=== PATIENT | male | born 1980 | race Caucasian/White ===

== ENCOUNTER 2018-04-07 09:31 | Emergency (ER) | payer OTHER, SELFPAY ==
[2018-04-07 09:35] VITALS: BP 109/73; PULSE 68; RESP 12; TEMP 36; O2SAT 98
[2018-04-07] MEDS: PROPARACAINE 0.5% OPHTH SOL 1 DROPS EYE-RIGHT (09:46)
--- NOTE | 2018-04-07 10:11 | ED_ITS ---
HPI - Eye Problem General Chief complaint: Eye Problems Stated complaint: SOMETHING IN RT EYE Time Seen by Provider: 04/07/18 10:05 Source: patient Mode of arrival: ambulatory Limitations: no limitations History of Present Illness HPI Narrative: This a 37-year-old male comes to the emergency department with complaint of redness and irritation of his right eye. Patient does not recall any trauma, he has not been grinding metal, working on cars have been her on any blowing debris or other things that would likely have gotten into his eye. He states he has had a little irritation alternating with each eye. He has not had any prior eye surgeries, he does not have any contacts or glasses. He states he has not noticed any major vision change they have been slightly irritated, slightly more teary but no purulent discharge thick goopy discharge or crusting. They do have several children at home but none of them have had similar symptoms. Related Data Previous Rx's Medication Instructions Recorded polymyxin B sulf-trimethoprim 1 drop EYE-RIGHT QID 5 Days ml 04/07/18 Allergies Allergy/AdvReac Type Severity Reaction Status Date / Time No Known Drug Allergies Allergy Verified 04/07/18 09:44 Review of Systems Review of Systems All systems reviewed & are unremarkable except as noted in HPI and below Eyes Denies blurry vision, Denies change in vision, Denies diplopia, Denies eye discharge, Reports dry eyes, Reports irritation, Denies itchy eyes, Denies loss of vision, Denies eye pain, Denies requires corrective lenses and Denies photophobia ENT Ears, Nose, Mouth, and Throat: Denies nasal congestion Respiratory Denies cough Integumentary/Breasts Denies rash Neurologic Denies loss of vision Allergic/Immunologic Denies itchy eyes Exam Initial Vital Signs Initial Vital Signs: Vital Signs Temperature 96.8 F L 04/07/18 09:35 Pulse Rate 68 04/07/18 09:35 Respiratory Rate 12 04/07/18 09:35 Blood Pressure 109/73 04/07/18 09:35 Pulse Oximetry 98 04/07/18 09:35 GEN: well nourished, well appearing male, alert and oriented x 3, patient appears to be in mild distress. HEENT: Atraumatic, pupils are equal round reactive to light, extraocular movements are intact, nares are clear, TMs are clear with no fluid, there is no conjunctival pallor. Throat is clear without any exudates, erythema, tonsillar enlargement or uvular deviation HEART: Regular rate and rhythm without murmur, clicks, rubs. No carotid bruits , pulses are equal in upper and lower extremities LUNGS:Lungs clear to auscultation, no wheezes, rales, crackles, chest moves symmetrically NEURO:CN 2-12 intact, sensation normal, reflexes 2/4 upper and lower extremities. finger nose finger test normal, heel marques test normal, romberg normal Visual acuity: See chart General: no globe trauma Eyelids: normal inspection, eyelids everted for exam on right, small foreign body noted to be rolling around along the lower lid on the right. Was easily removed by touching it with a Q-tip Conjunctiva/Sclera: normal inspection on the left sclera is slightly injected on the right but minimally. Corneas: normal inspection, examined with fluroscein on right, patient has some punctate uptake throughout the lower sclera on the right, none over the cornea. No linear scratches more clear signs of abrasion or ulceration. EOM: intact, no palsy/entrapment Pupils: PERRL, normal accomadation, pupil normal Anterior Chambers: normal inspection, no hypema Posterior: normal fundoscopic on right Course Orders Ordered: Discontinued Medications Neomycin/Polymyxin/Dexamethasone (Maxitrol Ophth Susp) 1 drops EYE-RIGHT NOW ONE Stop: 04/07/18 10:23 Proparacaine HCl (Parcaine 0.5% Ophth Christen) 1 drops EYE-RIGHT NOW ONE Stop: 04/07/18 09:45 Last Admin: 04/07/18 09:46 Dose: 1 drops Vital Signs - 8 hr 04/07/18 09:35 04/07/18 10:42 Temperature 96.8 F L Pulse Rate 68 76 Respiratory Rate 12 16 Blood Pressure 109/73 111/76 Pulse Oximetry 98 100 Discharge Plan Departure Patient Disposition: Home Clinical Impression: Conjunctivitis Discharge Date/Time: 04/07/18 10:34 Interventions: ED Discharge Assessment Last Done: 04/07/18 10:42 Instructions: DI for Conjunctivitis Activity Restrictions/Additional Instructions: Follow-up with Ophthalmology, call Monday morning for an appointment. Let them know that your referred from the emergency department and they should be able to set you up with a same day appointment. Use antibiotic eyedrops, 1-2 drops to the affected eye 4 times daily while awake. You may also use natural tears if you find this helpful. Use these before use the antibiotic eyedrops. You may take ibuprofen and/or Tylenol for pain Return to the ER for sudden decrease in vision, rapidly worsening symptoms, swelling of the eye, eyelid or surrounding skin, new redness, new discharge with thick purulent discharge or other new or concerning symptoms. Prescriptions: New polymyxin B sulf-trimethoprim 10,000 unit- 1 mg/mL drops 1 drop EYE-RIGHT QID 5 Days RF: 0 Referrals: Dany Curtis MD [Physician] -
[2018-04-07 10:42] VITALS: BP 111/76; PULSE 76; RESP 16; O2SAT 100
== END 2018-04-07 10:34 | disposition home or self-care (01) ==
PROVIDERS: Emergency Provider Emergency Medicine
DX: H10.9 Unspecified conjunctivitis (principal)
CPT/HCPCS: 99283